=== PATIENT | female | born 1935 | race Caucasian/White ===

== ENCOUNTER → 2017-02-02 | Day surgery (SDC) | payer MEDICARE, OTHER ==
[~2017-02-02] MED LIST: BUPIVACAINE/EPINEPHRINE 0.5% PF 10 ML VIAL ONE; IOHEXOL 180 MG/ML 20 ML VIAL (for RAD DIAG) ONE; LACTATED RINGER'S 1000 ML INJ 1,000 ML ONE; LIDOCAINE 1%/EPINEPHrine 1:100,000 SOLN 20 ML VIAL ONE; MIDAZOLAM HCL 2 MG/2 ML VIAL ONE; PROPOFOL 200 MG/20 ML AMP IV ONE; ceFAZolin 2 GM PREMIX 50 ML ONE
--- NOTE | 2017-02-02 15:20 | TN ---
cc: RENITA ELIZABETH DATE OF SURGERY: 02/02/2017 PREOPERATIVE DIAGNOSIS Compression fracture of L1, subacute. POSTOPERATIVE DIAGNOSIS Compression fracture of L1, subacute. PROCEDURE Kyphoplasty of L1 and placement of a bone cement spacer. SURGEON Renita Elizabeth ANESTHESIA TIVA. ESTIMATED BLOOD LOSS Minimal. INDICATION This patient is a 81-year-old female who sustained an injury to her lumbar spine. The patient began developing insidious onset low back pain in the first two weeks of December, approximately 5-6 weeks ago. She had no trauma. The patient was seen, evaluated and treated. She eventually came under the care of Dr. Jesús Elizabeth at the end of December. Investigative studies showed evidence of compression fracture at L1 and L2. Because she was proceeding poorly an MRI scan was obtained that showed evidence of a compression fracture of L2 which was chronic, and a recent compression fracture of L1. She now presents for kyphoplasty. DETAILS OF PROCEDURE The patient was brought to the operating room and given limited sedation. She was rolled to a prone position on the radiolucent frame. All pressure points were protected and the back was scrubbed with alcohol followed by Hibiclens followed by ChloraPrep and draped sterilely. Antibiotics were given within a one hour time window and a timeout was done. AP and lateral radiographic images were used identifying the L1 level and compared to preoperative studies. A single balloon approach was utilizing from the left side using the Kyphon system. Local anesthesia was utilized. A small incision was made and a small awl was placed down through the pedicle and into the vertebral body at an oblique angle. A 20 mm Kyphon balloon was placed centrally within the vertebral body and elevated. We had good correction of the deformity. On the back table methyl methacrylate was mixed and after 11 minutes was injected. There was no significant extravasation. Overall we had good fill of the vertebral body and good correction of the deformity. The cement was allowed to harden. The tubes were removed. Intraoperative x-rays were obtained. The wound was irrigated and anesthetized, closed with 4-0 Vicryl followed by Dermabond. The patient was awakened and taken to the recovery room in satisfactory condition. Renita Elizabeth MD [facility] [place] /3:03 PM /3:11 PM
== END | disposition home or self-care (01) ==
LOC: ESDC 12:29
PROVIDERS: ATTEND Orthopaedic Surgery Orthopaedic Surgery of the Spine
DX: S32.010A Wedge compression fracture of first lumbar vertebra, initial encounter for closed fracture (principal)
CPT/HCPCS: 01936; 22514; 72100; J0690; J2250; J3010; J7120; Q9965